=== PATIENT | female | born 1930 | race Caucasian/White ===

== ENCOUNTER 2016-07-25 22:23 | Inpatient (IN) | payer OTHER ==
[2016-07-26] MEDS ORDERED: ZOFRAN IV PRN ×2 (00:33→00:48)
[2016-07-26] MEDS ORDERED: MORPHINE IV PRN (00:38)
[2016-07-26] MEDS ORDERED: SALINE LOCK IV FLUID XX ONE (00:48)
[2016-07-26 01:13] LABS: MANUAL DIFF NEEDED? NO
[2016-07-26 01:14] LABS: BASO% 0.1 % (0.0-0.8); EOS# 0.06 X1000 (0.0-0.7); EOS% 0.7 % (0.0-10.0); HEMATOCRIT 42.2 % (37.0-47.0); HEMOGLOBIN 14.2 g/dL (12.0-16.0); IMM GRAN# 0.02 X1000 (0.0-0.04); IMM GRAN% 0.2 % (0.0-0.5); LYMPH# 0.94 X1000 (1.2-3.4); LYMPH% 11.1 % (20.5-51.1); MCH 31.1 PG (27-31); MCHC 33.6 g/dL (33-37); MCV 92.5 FL (81-99); MONO# 0.63 X1000 (0.11-0.59); MONO% 7.4 % (1.7-9.3); MPV 8.5 FL (7.4-10.4); NEUT% 80.5 % (42.2-75.2); PLT 195 X1000 (130-400); RBC 4.56 XMIL (4.2-5.4)
[2016-07-26] MEDS: TYLENOL PO PRN ×3 (01:22→20:10)
[2016-07-26 01:40] LABS: CALCIUM 9.2 mg/dL (8.8-10.2)
[2016-07-26 02:58] LABS: CK INDEX 1.4 (0.0-2.5); CK-MB 4.93 ng/mL (0.0-5.0)
--- NOTE | 2016-07-26 03:44 | HISTORY AND PHYSICAL ---
PRIMARY CARE PHYSICIAN: Dr. Luna. CHIEF COMPLAINT: Passed out, cardiac arrest. HISTORY OF PRESENTING ILLNESS: This is an 86-year-old female with a history of hypertension and hyperlipidemia who had presented to [facility] after she had an episode where she passed out. Apparently, she was in cardiac arrest. CPR was done. She was brought to [facility] emergency department where she improved and subsequently she was transferred to [facility], [place] due to lack of subspecialty care. At the time of my examination, patient states that she feels better. However, she complains of her chest being sore mostly from the CPR that was done. She denies any fevers, chills, nausea, vomiting, diarrhea, hemoptysis, melena, weight changes but admits also to having some shortness of breath. PAST MEDICAL HISTORY: Includes hypertension and hyperlipidemia. PAST SURGICAL HISTORY: She states she has stent in the abdominal aorta, femoropopliteal bypass in the left leg, cholecystectomy, appendectomy, hysterectomy. ALLERGIES: No known drug allergies. CURRENT MEDICATIONS: As listed in the MAR. SOCIAL HISTORY: She is a former smoker. Denies any history of alcohol or illicit drug use. FAMILY HISTORY: Positive for coronary disease in mother. REVIEW OF SYSTEMS: Twelve point review of systems listed is as in the HPI. Other systems negative. PHYSICAL EXAMINATION: GENERAL: Cooperative, friendly, elderly female. She is resting comfortably now. VITAL SIGNS: Temperature 97.4 degrees, pulse 75, respirations 18, blood pressure 156/51. She is saturating 97%. HEENT: Atraumatic, normocephalic. Extraocular movements intact. PERRLA. NECK: No masses. CHEST: Rhonchi. CARDIOVASCULAR: Regular rate and rhythm. ABDOMEN: Soft. Positive bowel sounds. EXTREMITIES: No edema. NEUROLOGIC: She is awake, alert, oriented x2. : No bladder distention. SKIN: Warm. LABORATORIES AND STUDIES: Still pending and we are waiting for records from [facility]. ASSESSMENT: This is an 86-year-old female. Apparently, she has had an episode where she passed out. Cardiopulmonary resuscitation was done. It was suspected she had a cardiac arrest. She was brought initially to [facility] emergency department and then transferred to [facility], [place] due to lack of subspecialty care there. The patient will need hospitalization for further management. 1. Status post cardiac arrest. 2. Hypertension. 3. Hyperlipidemia. PLAN: 1. We will admit patient to [facility]. 2. We will check an echocardiogram and check her cardiac enzymes. 3. We will consult dining service inspector. 4. Monitor blood pressure closely. Resume antihypertensive agent. 5. Restart her statin. 6. We will put patient on DVT prophylaxis with SCDs. 7. We will continue to follow and reassess. 8. The patient apparently is also DNR level 2 in that she does not want any mechanical ventilation. [id number]
[2016-07-26] MEDS: PRILOSEC PO SCH (06:13)
--- NOTE | 2016-07-26 08:12 | Diag Imaging Result Document ---
PROCEDURE NAME: CHEST-PORTABLE - 07/26/2016 SINGLE FRONTAL RADIOGRAPH OF THE CHEST: COMPARISON: 08/02/2012. FINDINGS: There is a poor inspiratory effort. The lungs are grossly clear, otherwise. There is no definite pleural fluid collection. Cardiac silhouette and central vasculature are grossly unremarkable accounting for magnification from AP technique. IMPRESSION: No definite acute pathology.
[2016-07-26] MEDS: ASPIRIN PO SCH (08:54)
--- NOTE | 2016-07-26 09:09 | PROGRESS NOTE ---
DATE: 07/26/2016 HISTORY: The patient was admitted yesterday. A patient of Dr. Luna. Apparently was at [facility]. She said she felt a little bit anxious, a little bit jittery going to [facility] and then they noticed her head was slumped over on her shoulder. They did not feel any pulse and apparently no respirations. There were some nurses there. They did CPR and [id number], and apparently returned. Did not record any arrhythmia that I know of. She went to [facility] and was sent over here. PAST MEDICAL HISTORY: Includes hypertension, hyperlipidemia. She has peripheral vascular disease. She has had a stent placed in the abdominal aorta, a femoral-popliteal bypass in the left leg, right carotid endarterectomy, cholecystectomy, appendectomy, and hysterectomy. REVIEW OF SYSTEMS: She today is awake and alert and comfortable. LABORATORY DATA: From yesterday, white count 8480, hematocrit 42, platelet count 195,000. Chemistries were unremarkable. She has had some recent medication adjustments for her blood pressure. Apparently, she has maybe some left subclavian stenosis. She apparently is supposed to take blood pressure in the right arm. She has been seen by Dr. Douglass in the past. Note that the serum creatinine is 1.2. ASSESSMENT AND PLAN: 1. Status post cardiac arrest. I am not sure if this was just a dip in blood pressure, possibly vasovagal contributed by her blood pressure medication but I will keep her on a monitor. Ask cardiology to assess. I believe she had a carotid Doppler study done on 06/28/2016. I think she needs to have an echocardiogram. Carotid Doppler, scattered calcific plaque in the distal common carotid and bulb on the right without hemodynamically significant lesion. Left side likewise has some irregular calcific plaque in the distal common and proximal internal carotid artery. Again, no hemodynamically significant lesion. There is noted a retrograde vertebral flow on the left which is new. Otherwise, the study was stable. Perhaps some improvement in the velocities noted. That was done in June of this year. Extremity arterial study done on 07/15/2016, intact perfusion and waveforms noted at the level of the toe bilaterally. Patient's ankle-brachial reflexes are above 1 which is related to calcification of the vessels. Clinical suspicion still holds. They recommended CT angiogram. MEDICATIONS AT HOME: Amlodipine 2.5 mg b.i.d., aspirin 62 mg q.a.m., clonidine 0.1 mg p.r.n., Lasix 40 mg p.o. p.r.n., hydrocodone half of a 5/325 b.i.d. p.r.n., Synthroid 75 mcg a day, losartan recently started. I think she has only taken a couple of doses and did not like the way it made her feel. Methocarbamol 1 p.o. b.i.d. p.r.n. and nitroglycerin lingual spray as needed which she did not take by report. Present time, they have held those medicines. She is on aspirin 325, Prilosec 20 mg a day. PLAN: Blood pressure is 137/44, 119/44, 129/44. My suspicion is that she had a dip in blood pressure, possibly vasovagal compounded by blood pressure medicines. We will leave her on a monitor. I do not see any sign of active cardiac ischemia. Get an echocardiogram and ask cardiology to evaluate as well. Note that an EKG was ordered this morning. Note, she remains in sinus rhythm.
--- NOTE | 2016-07-26 10:21 | CONSULTATION ---
DATE OF CONSULTATION: 07/26/2016 REQUESTING PHYSICIAN: Dr. Delfino Naylor REASON FOR CONSULTATION: Syncope. HISTORY OF PRESENT ILLNESS: Ms. Holland is a pleasant 86-year-old female who was in her usual state of health up until yesterday at about 10 minutes to 12. She had been attending a [employer] service between 10:30 in the morning and the moment she started to feel weak, she felt slightly nauseous, and then she lost consciousness. She was sitting at the [facility] with her daughter- in-law and her son. She leaned towards the [id number], and she really lost consciousness completely. There were 2 registered nurses nearby who attended her at that time. They checked the pulse, they could not feel a pulse, and they started CPR for about a minute or so, and then they were able to revive her. The patient gradually recovered consciousness. She was taken to [facility], and from there she has been transferred to [facility]. The patient recovered full consciousness in the emergency room. After recovering consciousness, she complained of pain in the chest which is positional, pleuritic, related probably to trauma to the chest cage from the CPR. She did not have any chest pain before passing out or feeling anything unusual before passing out. According to her son who is sitting next to her, she has had episodes where when she is walking down the isles at [facility], she gets to feeling short of breath and lightheaded. She has not fainted; however, she has come close to it. She aborts the episodes by sitting down. She has no history of previous fainting or pacemaker insertion. PAST MEDICAL HISTORY: Negative for myocardial infarction or stroke. She has a history of peripheral vascular disease. She has had previous stent to the aorta and also she has had femoral popliteal bypass in the past. She has had a carotid endarterectomy in the past. She does have a history of hypertension and hyperlipidemia. She denies having diabetes mellitus. PAST SURGICAL HISTORY: She has had a previous hysterectomy and cholecystectomy. ALLERGIES: She has no reported drug allergies. HOME MEDICATIONS: At the time of this admission included valsartan 160/25 once a day, and this has been just recently changed 2 days prior to this event from losartan. She also takes furosemide 20 mg daily, clonidine 0.1 mg as needed, nitroglycerin sublingual as needed, methocarbamol 1 tablet twice a day, rosuvastatin 20 mg at bedtime, Protonix 40 mg daily, losartan 1 tablet in the morning, aspirin 162 daily, amlodipine 2.5 twice a day, hydrocodone as needed. REVIEW OF SYSTEMS: She has been generally feeling more tired lately. She gets short of breath when performing physical activity. No episodes of angina pectoris. She has been told that the pulse in her left arm is much lower or much more decreased in amplitude or magnitude than the pulse in the right arm. 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 SOCIAL HISTORY: She is a . She lives with one of her children. She has had a total of 4 children. She quit smoking 32 years ago, not a drinker. PHYSICAL EXAMINATION: Blood pressure is 129/44, temperature 97.6, pulse 65, respirations 16. The patient is awake, alert and oriented, in no distress. HEENT is unremarkable. Chest: Fairly clear to auscultation and percussion. Heart sounds are regular and rhythmic. No definite gallop or murmur is noted. Abdomen is nontender, soft. No masses. No hepatomegaly. No bruits. Extremities showed slightly decreased pulses in the legs. The pulse in the left arm is definitely very decreased. In the right arm, the pulses are normal. Neurologic: She follows commands, moves all 4 extremities. She is alert, oriented, awake. Cranial nerves are normal. She had no focal weakness. DIAGNOSTIC DATA: White count is 8480, hemoglobin 14.2, hematocrit 42.2. Sodium is 141, potassium 4.0, BUN is 18, creatinine 1.2. Troponin level has been checked once and is negative. ProBNP level was normal on admission. Chest x-ray was done on admission, and it shows no definite acute pathology. EKGs done on admission show sinus rhythm with a nonspecific T wave in precordial leads V1 through V3. IMPRESSION: 1. The patient has suffered a syncopal episode. More than likely this is vasovagal. On the morning of the episode, the patient had not eaten breakfast. She had taken her blood pressure medications which had been recently changed. I suspect she had a significant orthostatic syncope. 2. History of severe peripheral vascular disease, previous carotid endarterectomy, previous femoral popliteal bypass. 3. History of hypertension. 4. History of hyperlipidemia. 5. Abnormal EKG. RECOMMENDATIONS: We will obtain an echocardiogram. We will possibly arrange for a Lexiscan stress test tomorrow. Further intervention will depend on her clinical course.
[2016-07-26 10:33] LABS: CK INDEX 1.1 (0.0-2.5); CK-MB 3.69 ng/mL (0.0-5.0)
[2016-07-26 10:45] LABS: URINE MICRO REVIEW NEEDED? NO; URINE SOURCE CATH
[2016-07-26 10:55] LABS: BILIRUBIN URINE NEGATIVE (NEGATIVE); BLOOD URINE NEGATIVE (NEGATIVE); COLOR YELLOW; GLUCOSE URINE NEGATIVE (NEGATIVE); LEUKOCYTES URINE NEGATIVE (NEGATIVE); NITRITE URINE NEGATIVE (NEGATIVE); PROTEIN URINE TRACE mg/dL (NEGATIVE); SP GRAVITY URINE 1.019; TURBIDITY URINE CLEAR (CLEAR); UROBILINOGEN URINE 2 mg/dL (NORMAL)
[2016-07-26 10:56] LABS: UR EPITHELIAL CELLS <10 /HPF (<10); URINE BACTERIA 2+ /HPF; URINE CULTURE NEEDED? YES; URINE RBC <10 /HPF (<10); URINE WBC <10 /HPF (<10)
--- NOTE | 2016-07-26 14:29 | EKG Report ---
Test Performed on : 07/26/2016 1:58:34 PM Test Reason : syncope Blood Pressure : / mmHG Vent. Rate : 074 BPM Atrial Rate : 074 BPM P-R Int : 164 ms QRS Dur : 076 ms QT Int : 406 ms P-R-T Axes : 042 020 078 degrees QTc Int : 450 ms Normal sinus rhythm. Nonspecific T wave abnormality Abnormal ECG No previous ECGs available Confirmed by Mauricio Stubbs MD ([id number]) on 07/28/2016 9:10:16 PM
[2016-07-26] MEDS: COLACE PO SCH ×2 (17:29→20:10)
[2016-07-26 19:13] LABS: CK INDEX 0.9 (0.0-2.5); CK-MB 2.57 ng/mL (0.0-5.0)
[2016-07-27] MEDS: TYLENOL PO PRN ×3 (04:29→22:16)
[2016-07-27 05:46] LABS: HDL 62 mg/dL (45-65); LDL 24 mg/dL; MAGNESIUM 1.9 mg/dL (1.5-2.7); TRIGLYCERIDES 182 mg/dL (35-135); VLDL 36 mg/dL
[2016-07-27] MEDS: PRILOSEC PO SCH (06:33)
--- NOTE | 2016-07-27 07:30 | EKG Report ---
Test Performed on : 07/27/2016 06:24:52 AM Test Reason : syncope Blood Pressure : / mmHG Vent. Rate : 072 BPM Atrial Rate : 072 BPM P-R Int : 170 ms QRS Dur : 080 ms QT Int : 400 ms P-R-T Axes : 039 008 084 degrees QTc Int : 438 ms Sinus rhythm. with frequent premature ventricular complexes. Cannot rule out Inferior infarct , age undetermined Abnormal ECG When compared with ECG of 26-JUL-2016 13:58, (Unconfirmed) premature ventricular complexes. are now present Confirmed by Mauricio Stubbs MD ([id number]) on 07/28/2016 9:18:02 PM
--- NOTE | 2016-07-27 08:56 | PROGRESS NOTE ---
DATE: 07/27/2016 CHIEF COMPLAINT: Syncope. SUBJECTIVE: Ms. Holland has not had any further episodes of syncope. Yesterday afternoon after I had seen her on the initial encounter, the patient developed an episode of abdominal cramping discomfort when she was moving her bowels, developed bradycardia with a junctional rhythm, and basically came very close to passing out or passed out for a brief second. Since then she has been 4 times to the potty chair. She has not had any further issues. The daughter states that she did have loose stools around the time of the first episode. OBJECTIVE: Vital signs: Blood pressure 132/44, temperature 97.1, pulse 85, respirations 20. She is awake, alert and oriented, in no distress. HEENT: Unremarkable. Chest: Clear to auscultation and percussion. Cardiac: Heart sounds regular and rhythmic. No gallop or murmur. No masses. No hepatomegaly. Extremities: No edema. Neurologic: She moves four extremities. IMPRESSION: 1. Patient who presented with syncopal episode. 2. Bradycardia, junctional documented coinciding with syncopal episode. That appears to be vasovagal, vasodepressor. 3. History of hypertension. 4. History of peripheral vascular disease, previous carotid endarterectomy. 5. Abnormal electrocardiogram. RECOMMENDATIONS: We will obtain an echocardiogram on her. We will also obtain a Lexiscan myocardial perfusion stress test. Further intervention will depend on her clinical course. Of note, blood work shows a cholesterol of 122, HDL of 62, LDL is 24 which is very low. Pro BNP was normal. Troponins were checked, a total of 3 times. They are all negative.
[2016-07-27] MEDS: COLACE PO SCH ×2 (09:30→20:17)
[2016-07-27] MEDS: ASPIRIN PO SCH (09:30)
[2016-07-27] MEDS ORDERED: LEXISCAN ONE (12:51)
--- NOTE | 2016-07-27 16:06 | Diag Imaging Result Document ---
PROCEDURE NAME: MYOCARDIAL PERF SCAN, STR/REST - 07/27/2016 PROCEDURE: Rest/stress Lexiscan myocardial perfusion study. REQUESTING DOCTOR: Juanito Sousa MD PRIMARY SERVICE: Hospitalist. REASON FOR STUDY: Syncope. Suspect coronary heart disease. DESCRIPTION: The patient came into the nuclear lab, received a rest injection of technetium-99 sestamibi 12.1 mCi. Multiple tomographic views of the cardiac structure were obtained at rest. Subsequently, the patient received infusion of Lexiscan 0.4 mg. At peak infusion, injected with technetium-99 sestamibi 34.2 mCi. Multiple tomographic views of the cardiac structure were obtained following the completion of protocol. SUMMARY OF THE ELECTROCARDIOGRAPHIC PORTION OF THE STUDY: Resting electrocardiogram shows sinus rhythm, rate 71 beats per minute. There are some PVC's, PACs noted. Resting blood pressure 142/78. During infusion of Lexiscan, the heart rate increased to 115 beats per minute. Blood pressure went up to 131/54. The patient demonstrated some minor T-wave changes in the precordial leads, V1 and V2. Otherwise, no symptoms were reported. During the recovery phase, nothing abnormal was noted. SUMMARY: In summary, electrocardiographic response to infusion of Lexiscan is deemed to be unremarkable. SUMMARY OF THE MYOCARDIAL PERFUSION PORTION OF THE STUDY: Poststress tomographic views of the left ventricle showed normal homogeneous distribution of radiotracer throughout the entire left ventricular myocardium. There is no evidence of any postexercise defect. Rest images show normal perfusion. Polar plots revealed the same. There is no evidence of either inducible ischemia or myocardial scar. Gated SPECT showed normal left ventricular systolic function, ejection fraction estimated at 74% with normal ventricular volumes. No wall motion abnormality. Lung/heart ratio is normal. TID is normal. SUMMARY: This study shows: 1. Unremarkable electrocardiographic response to infusion of Lexiscan. 2. Normal poststress myocardial perfusion scan. There is no scintigraphic evidence of pharmacologically induced myocardial ischemia utilizing Lexiscan protocol. 3. Normal left ventricular systolic function. Ejection fraction estimated at 74 % with normal ventricular volumes. No wall motion abnormality. 4. This study represents low risk for ischemic events. Clinical correlation recommended. [facility]
--- NOTE | 2016-07-27 17:19 | ECHO REPORT ---
ORDER DATE: 07/27/2016 INTERPRETING PHYSICIAN: Dr. Sousa REQUESTING PHYSICIAN: CLINICAL INDICATIONS: An 89-year-old female with chest pain, hypertension, hyperlipidemia. M-MODE MEASUREMENTS: Right ventricle: 2.3 cm. Left ventricle end diastole: 5.2 cm. Left ventricle end systole: 3.2 cm. Posterior wall: 1.2 cm. Interventricular septum: 1.2 cm. Left atrium: 3.4 cm. Aortic root: 3.3 cm. SUMMARY OF 2-DIMENSIONAL IMAGING: The left ventricular systolic function is normal. Ejection fraction is estimated visually in the range of 65-70%. No wall motion abnormality is noted. The right ventricle is not dilated. The aortic valve looks normal. Color flow mapping unremarkable. The mitral valve looks normal. Color flow mapping unremarkable. Pulse wave Doppler of mitral inflow shows mild reversal of the E and the A wave. Tissue Doppler of septal and lateral mitral annulus averages 4.5 cm per second. There is impaired left ventricular relaxation. The tricuspid valve shows a [id number] degree of regurgitation. The inferior vena cava was not well visualized. Pulmonary pressure is probably in the order of 54 mmHg. The pulmonic valve is unremarkable. The aortic valve looks normal. Color flow mapping unremarkable. There is no stenosis. No regurgitation. There is some calcification of the mitral annulus. There is no pericardial effusion, masses nor thrombus. Clinical correlation recommended.
[2016-07-28] MEDS: TYLENOL PO PRN ×2 (06:21→12:05)
[2016-07-28] MEDS: PRILOSEC PO SCH (06:21)
--- NOTE | 2016-07-28 06:42 | EKG Report ---
Test Performed on : 07/28/2016 06:18:07 AM Test Reason : syncope Blood Pressure : / mmHG Vent. Rate : 068 BPM Atrial Rate : 068 BPM P-R Int : 176 ms QRS Dur : 082 ms QT Int : 414 ms P-R-T Axes : 054 022 066 degrees QTc Int : 440 ms Normal sinus rhythm. with sinus arrhythmia. Nonspecific T wave abnormality Abnormal ECG When compared with ECG of 27-JUL-2016 06:24, (Unconfirmed) premature ventricular complexes. are no longer present Nonspecific T wave abnormality, improved in Lateral leads Confirmed by Mauricio Stubbs MD ([id number]) on 07/28/2016 9:46:57 PM
[2016-07-28] MEDS ORDERED: SYNTHROID PO SCH (07:00)
--- NOTE | 2016-07-28 09:02 | PROGRESS NOTE ---
DATE: 07/28/2016 CHIEF COMPLAINT: Syncope. SUBJECTIVE: Ms. Holland has no further episodes of syncope. No palpitations, no chest pain. She complains of back pain. No shortness of breath. OBJECTIVE: Vital signs: Blood pressure today is 170/51, temperature 98 degrees, pulse 69, respiratory rate 12. General: The patient is awake, alert, oriented, in no distress. HEENT: Unremarkable. Chest: Clear to auscultation and percussion. Cardiac: Heart sounds regular and rhythmic without gallop or murmur. Abdomen: Nontender. Extremities: Show no edema. Neurologic: At this time, she moves four extremities. DIAGNOSTIC DATA: Her echocardiogram from yesterday shows normal left ventricular ejection fraction. No valvular abnormality. Perfusion imaging study using Lexiscan protocol is normal. IMPRESSION: 1. A patient who presented with syncope. 2. History of hypertension. 3. History of chronic back pain. 4. History of peripheral vascular disease. RECOMMENDATIONS: At this point in time, the patient will be treated medically. She will probably have to cut down on some of her antihypertensive drugs. We may want to avoid nitroglycerin sublingual on her and keep her well hydrated. We will arrange for a followup at the office. Today, I will suggest to let her get up and walk with Physical Therapy, and then, if she is stable, she could go home by tomorrow.
[2016-07-28] MEDS: ASPIRIN PO SCH (09:49)
[2016-07-28] MEDS: COLACE PO SCH (09:49)
[2016-07-28 16:06] VITALS: BP 169/53
--- NOTE | 2016-07-28 17:25 | PALLIATIVE CARE CONSULTATION ---
DATE: 07/28/2016 REQUESTING PHYSICIAN: Dr. Gonzalez. REASON FOR CONSULTATION: The family is requesting information regarding Advanced directive. HISTORY OF PRESENT ILLNESS: This is an 86-year-old, female with a past medical history of hypertension and hyperlipidemia who was admitted on 07/25/2016 after being transferred from [facility]. It is reported that on the date of admission she had an episode where she started to feel weak, felt nauseous, and then lost consciousness. This all took place while at [facility]. There were 2 registered nurses nearby who started CPR, and it was at that time EMS transferred her to [facility]. Currently, she is lying in hospital bed. She complains of soreness to her chest. She denies dyspnea or any other pain. Her family is at the bedside. The palliative care team has been consulted to answer questions regarding advanced directive. REVIEW OF SYSTEMS: Twelve-point review of system has been conducted and otherwise negative except those mentioned in the HPI. PAST MEDICAL HISTORY: 1. Hypertension. 2. Hyperlipidemia. PAST SURGICAL HISTORY: 1. Cholecystectomy. 2. Appendectomy. 3. Hysterectomy. 4. Abdominal aortic stent. 5. Femoral/popliteal bypass to the left leg. SOCIAL HISTORY: Prior to this admission, she lived with her son and [id number]. Alcohol, tobacco and drug use have been denied. FAMILY HISTORY: Positive for coronary artery disease to her mother. PHYSICAL EXAMINATION: General: This is an 86-year-old, female who is very pleasant and does not appear to be in any acute distress. HEENT: Atraumatic, normocephalic. Neck: Trachea is midline. Cardiovascular: Regular rate and rhythm. Pulmonary: Lung sounds are clear. Respirations are nonlabored. Abdomen: Soft. Bowel sounds are active. Extremities: Pulses are palpable. Skin: Warm and dry. Neurologic: Awake and alert. She is oriented to person, place, and time. IMPRESSION: This is an 86-year-old, female with a past medical history as listed above in the HPI. I met with the patient and her family to answer questions regarding advanced directives, and a blank advanced directive form was given to the patient's [id number] per her request. The family had questions regarding DNR level 1 and DNR level 2. The patient states that she does not want any aggressive care in the event that her heart stops beating or she stops breathing. She states that she would want a natural . All questions were answered regarding the advanced directive and life-saving treatment options. The palliative care team will be available as needed. Thank you for this consultation. Dictated by SEAN Gorman for Quang Curtis MD
[2016-07-28] MEDS ORDERED: TRAVATAN 0.004% OPH SOLN BOTH EYES SCH (21:00)
--- NOTE | 2016-07-29 10:47 | DISCHARGE SUMMARY ---
ADMISSION DATE: 07/26/2016 DISCHARGE DATE: 07/28/2016 CONSULTATIONS: Dr. Sousa. PERTINENT PROCEDURES: Rest/stress Lexiscan. The resting EKG showed sinus rhythm at a rate of 71 beats per minute. There were some PVCs and PACs noted. Resting blood pressure is 142/78. The heart rate did increase to 115 beats per minute. Blood pressure went up to 131/ 54. The patient demonstrated some minor T-wave changes in the precordial leads V1 and V2. The results were deemed to be unremarkable. Echocardiogram showed an EF of 65-70% with no wall motion abnormality. DISCHARGE DIAGNOSES: 1. Syncope, possibly secondary to her antihypertensives. Adjustments have been made to her antihypertensives. Her nitroglycerin paste has also been discontinued. The patient has been advised to drink plenty of fluids. 2. Bradycardia, junctional documented coinciding with syncopal episode. Appears to be vasodepressor syncope. 3. Hypertension history. 4. Peripheral vascular disease, previous carotid endarterectomy. 5. Status post cardiopulmonary resuscitation after syncopal episode. HOSPITAL COURSE: All cardiac enzymes have been negative. Patient underwent a normal Lexiscan. She will be treated medically. She was cut down on some of her antihypertensives. She was told to avoid any sublingual nitroglycerin and to keep well hydrated. She will need to follow up with Dr. Sousa in the office. Physical therapy was consulted. Dr. Gonzalez has assessed the patient. He feels that she is appropriate for discharge home today. DISCHARGE DIET: Regular. DISCHARGE MEDICATIONS: As per Dr. Gonzalez. Please see MAR. FOLLOWUP: The patient is being discharged home. She will need to follow with Dr. Sousa. She will also need to follow with her primary care physician. As of note, the patient was a DNR level 2 while she was admitted here under our service. Again, patient has been educated on her antihypertensives being cut down. She is also to avoid any sublingual nitroglycerin as well as staying hydrated. Patient can return to the ED for any worsening of symptoms. Discharge time greater than 30 minutes. Dictated by SEAN Rousseau for Javier Gonzalez MD MTDD
== END 2016-07-28 17:30 | disposition home or self-care (01) | DRG 312 ==
LOC: DIRADM 22:23 → 3S 23:33
PROVIDERS: ATTEND Internal Medicine
DX: I95.2 Hypotension due to drugs (principal); R00.1 Bradycardia, unspecified; I73.9 Peripheral vascular disease, unspecified; I10 Essential (primary) hypertension; E78.5 Hyperlipidemia, unspecified; Z79.899 Other long term (current) drug therapy; Z87.891 Personal history of nicotine dependence; Z82.49 Family history of ischemic heart disease and other diseases of the circulatory system; T46.5X5A Adverse effect of other antihypertensive drugs, initial encounter
CPT/HCPCS: 71010; 78452; 80048; 80061; 81001; 82550; 82553; 82948; 83735; 83880; 84443; 84484; 85025; 87088; 93005; 93010; 93017; 93306; 94761; A9500; 97116-GP